=== PATIENT | male | born 1980 | race American Indian/Alaskan Native ===

== ENCOUNTER 2018-05-07 18:06 | Emergency (ER) | payer SELFPAY ==
[2018-05-07 18:13] VITALS: BP 138/79
== END 2018-05-07 22:37 | disposition left against medical advice (07) ==
LOC: ED 18:06
DX: R20.0 Anesthesia of skin (principal); I10 Essential (primary) hypertension; Z53.21 Procedure and treatment not carried out due to patient leaving prior to being seen by health care provider